=== PATIENT | female | born 1960 | race Caucasian/White ===

== ENCOUNTER 2017-08-15 16:07 | Emergency (ER) | payer BC, OTHER | END 2017-08-15 17:38 | disposition left against medical advice (07) | LOC: UCEAST 16:07 | DX: Z76.0 Encounter for issue of repeat prescription (principal); Z53.21 Procedure and treatment not carried out due to patient leaving prior to being seen by health care provider ==

== ENCOUNTER 2017-08-15 17:26 | Emergency (ER) | payer BC, OTHER ==
[2017-08-15 17:58] VITALS: BP 131/77
--- NOTE | 2017-08-27 08:24 | UC ---
UC General HPI - HPI Summary HPI Summary: Patient is here with hx of mountain sickness at high elevations. SHe is due for a hiking trip next week in the [facility] and is requesting diamox of the trip. - History of Current Complaint Chief Complaint: UCMedRefill Stated Complaint: NEEDS HIGH ALTITUDE MEDS Time Seen by Provider: 08/15/17 18:05 Hx Obtained From: Patient Hx Last Menstrual Period: 03/04/15 Onset/Duration: Resolved Current Severity: None Pain Intensity: 0 Associated Signs & Symptoms: Positive: Dizziness, Vomiting - Allergy/Home Medications Allergies/Adverse Reactions: Allergies Allergy/AdvReac Type Severity Reaction Status Date / Time No Known Allergies Allergy Verified 08/15/17 17:51 Home Medications: Home Medications Cholecalciferol TAB* [Vitamin D TAB*] 400 unit PO DAILY 08/15/17 [History Confirmed 08/15/17] PMH/Surg Hx/FS Hx/Imm Hx Previously Healthy: Yes - Surgical History Surgical History: Yes Surgery Procedure, Year, and Place: [facility], - Family History Known Family History: Negative: Cardiac Disease, Hypertension, Diabetes - Social History Alcohol Use: Occasionally Substance Use Type: None Smoking Status (MU): Never Smoked Tobacco Review of Systems Constitutional: Negative Skin: Negative Eyes: Negative ENT: Negative Respiratory: Negative Cardiovascular: Negative Gastrointestinal: Negative Genitourinary: Negative Motor: Negative Neurovascular: Negative Musculoskeletal: Negative Neurological: Negative Psychological: Negative Is Patient Immunocompromised?: No All Other Systems Reviewed And Are Negative: Yes Physical Exam Triage Information Reviewed: Yes Appearance: Well-Appearing, No Pain Distress, Well-Nourished Vital Signs: Initial Vital Signs Temp 99.1 F 08/15/17 17:52 Pulse 58 08/15/17 17:52 Resp 14 08/15/17 17:52 BP 131/77 08/15/17 17:52 Pulse Ox 100 08/15/17 17:52 Vital Signs Reviewed: Yes Eye Exam: Normal ENT Exam: Normal Dental Exam: Normal Neck exam: Normal Respiratory Exam: Normal Cardiovascular Exam: Normal Abdominal Exam: Normal Bowel Sounds: Positive: Present Musculoskeletal Exam: Normal Neurological Exam: Normal Psychological Exam: Normal Skin Exam: Normal Course/Dx - Course Course Of Treatment: hx obtained, exam performed, reviewed adverse affects and benefits of medication, prescribed enopugh for her trip - Differential Dx - Multi-Symptom Provider Diagnoses: hx of mountain sickness Discharge - Discharge Plan Condition: Stable Disposition: HOME Prescriptions: acetaZOLAMIDE TAB* [Diamox Tab*] 125 mg PO BID #12 tab Patient Education Materials: Mountain Sickness (ED) Referrals: EWELINA Connors [Primary Care Provider] - Additional Instructions: 1. use the medication as directed 2. increase water intake significantly.
== END 2017-08-15 18:22 | disposition home or self-care (01) ==
LOC: UCCORT 17:26
DX: T70.20XA Unspecified effects of high altitude, initial encounter (principal); Z76.0 Encounter for issue of repeat prescription
CPT/HCPCS: 99212; G0463

== ENCOUNTER 2019-07-02 19:11 | Emergency (ER) | payer BC, OTHER ==
[2019-07-02 20:41] VITALS: BP 113/77
--- NOTE | 2019-07-02 20:49 | UC ---
Skin Complaint HPI - HPI Summary HPI Summary: 59 y/o female presents to the urgent care c/o red itchy rash on left inner thigh, knee and hip for the past 1.5 week. It is Stinging, tender and itchy. She has not applied anything to alleviate symptoms. Itchiness worse at night time. The rash in the lateral side of the knee is resolving, but the inner thigh is warm to touch. Pt denies fever, SOB, dizziness, chest pain, abdominal pain, N/V/D, PEÑA. - History of Current Complaint Chief Complaint: UCSkin Time Seen by Provider: 07/02/19 20:46 Stated Complaint: SKIN CONCERN Hx Obtained From: Patient Hx Last Menstrual Period: 03/04/15 Onset/Duration: Gradual Onset, Lasting Weeks - 1.5 weeks, Worse Since - 2 days w / redness around papules Skin Exposure Onset/Duration: Weeks Ago - 1.5 weeks Timing: Constant Onset Severity: Mild Current Severity: Moderate Pain Intensity: 2 Pain Scale Used: 0-10 Numeric Location: Discrete - inner tight Character: Pruritus, Redness Aggravating Factor(s): Touch Alleviating Factor(s): Nothing Associated Signs & Symptoms: Positive: Rash - itchy rash in the inner side of the LF thigh, lateral side of the left knee and hip. Negative: Fever, Chills Related History: Possible Reaction to: Insect - bed bugs - Allergy/Home Medications Allergies/Adverse Reactions: Allergies Allergy/AdvReac Type Severity Reaction Status Date / Time No Known Allergies Allergy Verified 07/02/19 20:38 Home Medications: Home Medications metFORMIN* [Glucophage 500 MG TAB *] 500 mg PO BID 07/02/19 [History Confirmed 07/02/19] PMH/Surg Hx/FS Hx/Imm Hx Previously Healthy: Yes Endocrine History: Diabetes - Surgical History Surgical History: Yes Surgery Procedure, Year, and Place: [facility], - Family History Known Family History: Positive: Hypertension, Diabetes Negative: Cardiac Disease - Social History Occupation: Employed Full-time Lives: With Family Alcohol Use: Occasionally Substance Use Type: None Smoking Status (MU): Never Smoked Tobacco Review of Systems All Other Systems Reviewed And Are Negative: Yes Constitutional: Positive: Negative Skin: Positive: Rash - itchy rash in the inner side of the LF thigh, lateral side of the left knee and hip Eyes: Positive: Negative ENT: Positive: Negative Respiratory: Positive: Negative Cardiovascular: Positive: Negative Gastrointestinal: Positive: Negative Genitourinary: Positive: Negative Motor: Positive: Negative Neurovascular: Positive: Negative Musculoskeletal: Positive: Negative Neurological: Positive: Negative Psychological: Positive: Negative Is Patient Immunocompromised?: No Physical Exam - Summary Physical Exam Summary: Vital Signs Reviewed: Yes General: well appearing, well nourished female in no acute apparent pain distress, sitting comfortably on examining table Eye Exam: Normal Eyes: Positive: Conjunctiva Clear - PERRLA< EOMI, fundi grossly normal ENT: Positive: Normal ENT inspection, Hearing grossly normal, Pharynx normal, TMs normal Neck: Positive: Supple, Nontender, No Lymphadenopathy Respiratory: Positive: Chest non-tender, Lungs clear, Normal breath sounds, No respiratory distress Cardiovascular: Positive: RRR, No Murmur, Pulses Normal, Brisk Capillary Refill Abdomen Description: Positive: Nontender, No Organomegaly, Soft. Negative: CVA Tenderness (R), CVA Tenderness (L) Bowel Sounds: Positive: Present Musculoskeletal: Positive: Strength Intact, ROM Intact, No Edema Neurological: Positive: Alert, Muscle Tone Normal Psychological Exam: Normal Skin: Positive: Positive: erythematous group papules in the medial aspect of the LF thigh w/ surround erythema and other similar rash in the lateral side of the left knee and left hip, w/ signs of excoriations. mild tender to palpation , no discharge observed Triage Information Reviewed: Yes Vital Signs: Initial Vital Signs Temp 98.3 F 07/02/19 20:36 Pulse 75 07/02/19 20:36 Resp 14 07/02/19 20:36 BP 113/77 07/02/19 20:36 Pulse Ox 100 07/02/19 20:36 Course/Dx - Course Course Of Treatment: 59 y/o female presents to the urgent care c/o red itchy rash on left inner thigh, knee and hip for the past 1.5 week. It is Stinging, tender and itchy. She has not applied anything to alleviate symptoms. Itchiness worse at night time. The rash in the lateral side of the knee is resolving, but the inner thigh is warm to touch. Pt denies fever, SOB, dizziness, chest pain, abdominal pain, N/V/D, PEÑA. Hx obtained. Pt with unspecified rash. Probably bed bugs with bacterial co-infection since some papules have yellowish drainage. Pt Rx Keflex PO, Benadryl PO for pruritus. Advised to wash all clothing and bedding with hot water. Pt educated on bed bugs. Pt understood and agreed with plan of care. - Differential Diagnoses - Skin Complaint Differential Diagnoses: Abscess, Contact Dermatitis, Local Allergic Reaction, Poison [place], Poison [place], Scabies, Urticaria - Diagnoses Provider Diagnosis: Rash, Bed bug bite Discharge ED - Sign-Out/Discharge Documenting (check all that apply): Patient Departure - D/C home All imaging exams completed and their final reports reviewed: No Studies - Discharge Plan Condition: Stable Disposition: HOME Prescriptions: Cephalexin CAP* [Keflex CAP*] 500 mg PO TID #20 cap Patient Education Materials: Bed Bugs (ED) Referrals: EWELINA Connors [Primary Care Provider] - 3 Days Additional Instructions: 1-Please apply Hydrocortisone topical cream as directed. Avoid sun exposure 2-Please take Keflex PO as directed to alleviate rash co-infection. Wash all cloths and bed linens w/ hot water 3-If symptoms do not improve or worsen please f/u with your PCP in 3 days or return to the urgent care for further evaluation and treatment. - Billing Disposition and Condition Condition: STABLE Disposition: Home
[2019-07-02] MEDS ORDERED: Hydrocortisone 1% CREAM* 30 GM TUBE TOPICAL ONE (21:03)
[2019-07-02] MEDS ORDERED: Cephalexin CAP* 500 MG PO ONE (21:04)
== END 2019-07-02 21:25 | disposition home or self-care (01) ==
LOC: UCCORT 19:11
DX: S70.362A Insect bite (nonvenomous), left thigh, initial encounter (principal); R21 Rash and other nonspecific skin eruption; E11.9 Type 2 diabetes mellitus without complications; Z79.84 Long term (current) use of oral hypoglycemic drugs; W57.XXXA Bitten or stung by nonvenomous insect and other nonvenomous arthropods, initial encounter; Y92.9 Unspecified place or not applicable
CPT/HCPCS: 99213; A9270-GY; G0463